=== PATIENT | male | born 1960 | race Caucasian/White ===

== ENCOUNTER 2018-07-11 06:29 | Day surgery (SDC) | payer OTHER ==
--- NOTE | 2018-07-09 07:52 | EKG ---
Test Date: 2018-07-08 Test Time: 17:03:15 Sales Project Engineer: AGUSTIN MEASUREMENT RESULTS: Intervals: Rate: 52 OK: 162 QRSD: 94 QT: 428 QTc: 398 [place]: P: 3 OK: 162 QRS: 52 T: 20 INTERPRETIVE STATEMENTS: Sinus bradycardia Otherwise normal ECG No previous ECG available for comparison Electronically Signed On 07-09-18 07:51:[address]
[2018-07-11] MEDS ORDERED: Ringers Lactate 1,000 ML IV ONE ×2 (06:48→07:45)
[2018-07-11] MEDS ORDERED: CEFAZOLIN/SWI 1gm 1 GM/10 ML SYR ONE (06:48)
[2018-07-11] MEDS ORDERED: PROPOFOL 200 MG/20 ML VIAL IV ONE (06:56)
[2018-07-11] MEDS ORDERED: GLYCOPYRROLATE 0.2 MG/ML SYR ONE ×2 (06:57→07:42)
[2018-07-11] MEDS ORDERED: MIDAZOLAM HCL 2 MG/2 ML INJ ONE (06:57)
[2018-07-11] MEDS ORDERED: FENTANYL CITR 100 MCG/2 ML ONE (06:57)
[2018-07-11] MEDS ORDERED: LIDOCAINE 2% MPF 5 ML VIAL ONE (06:58)
[2018-07-11] MEDS ORDERED: NEOSTIGMINE 1 MG/ML -5 ML SYRINGE ONE (07:01)
[2018-07-11] MEDS ORDERED: ONDANSETRON HCL 40 MG/20 ML VIAL ONE (07:01)
[2018-07-11] MEDS ORDERED: BUPIVACAINE 0.25% PF 10 ML VIAL ONE (07:11)
[2018-07-11] MEDS ORDERED: ROCURONIUM 50 MG/5 ML VIAL IV ONE (07:30)
[2018-07-11] MEDS ORDERED: EPHEDRINE SULF 50 MG/10 ML SYR ONE (07:42)
--- NOTE | 2018-07-11 08:09 | P.OP ---
Senior Analyst Developer: Gallo Owens Preoperative diagnosis: Umbilical Hernia Postoperative diagnosis: Umbilical Hernia Primary procedure: Open Umbilical Hernia Repair with Mesh Anesthesia: GETA + Local Estimated blood loss: < 5 cc Specimen: Hernia Sac, Preperitoneal fat Findings: ~1.5 cm umbilical defect Complications: None Implants: Ventralex Transferred to: Recovery Room Condition: Good
[2018-07-11] MEDS: MEPERIDINE HCL 25 MG/0.5 ML ONE ×2 (08:41→08:46)
[2018-07-11] MEDS ORDERED: HYDROCODONE/APAP 5/325 MG TAB ONE (09:32)
--- NOTE | 2018-07-11 18:07 | OP ---
Date of Procedure: 07/11/2018 Surgeon: Valentin Pérez MD, Preoperative Diagnosis: Umbilical hernia. Postoperative Diagnosis: Umbilical hernia. Procedure Performed: Open umbilical hernia repair with mesh. Anesthesia: General endotracheal plus local with 0.25% Marcaine with epinephrine. Estimated Blood Loss: Less than 5 cc. Specimens: Hernia sac and preperitoneal fat. Findings: Approximately 1.52 cm umbilical defect. Complications: None. Implants: Ventralight small prosthetic synthetic mesh manufactured by [employer]. Disposition: Transferred to recovery room in good condition. Procedure In Detail: After informed was obtained, the patient was brought to the operating room, pre pped and draped in the usual sterile fashion. After adequate anesthesia was achieved, an infraumbili shari area was anesthetized with 0.25% Marcaine, sharply incised with a 15-blade down through subcutane ous tissues to expose the subcutaneous fat. The subcutaneous fat was dissected circumferentially shraddha und a palpable 1.5 cm to 2 cm umbilical hernia defect. The tissues were then circumferentially disse cted free and the hernia sac was grasped, elevated, and entered sharply using Metzenbaum scissors. A fter exposure and opening of the hernia sac was appreciated, the preperitoneal contents were exposed. There was some preperitoneal attached fat to the hernia sac. This was circumferentially dissected, and the hernia sac was ligated. All remaining preperitoneal contents were returned to the normal an atomic position. A finger sweep was performed within the hernia defect to palpate the area and ensur e a good clean landing zone for the mesh. The [employer] Ventralex small hernia mesh system was then broug ht into the field, hydrated appropriately, and placed in the preperitoneal position in a parachute-ty pe fashion using #1 PDS sutures in a circumferential manner using interrupted technique. After the m esh was found to be in good anatomic position, and lying flat, I secured these over the top. The shin l was then grasped, elevated, and the remaining hernia defect was closed with a 0 Ethibond in a runni ng fashion and the cell was then removed with the Gottlieb scissors. At this time, the area was copiou sly irrigated multiple times. The colon was completely clear. No additional hemostatic maneuvers re quired. The subcutaneous space was then closed using an interrupted 3-0 Vicryl suture and the skin w as closed with a 4-0 Monocryl in a running fashion. Dermabond placed over top. The patient tolerate d the procedure well without evidence of complication, transferred to PACU in good condition. All co unts were correct at the end of the case. KERRIE/ROHINI Voice ID: [id number] Report ID: [id number]
== END 2018-07-11 10:45 | disposition home or self-care (01) ==
LOC: OR 06:29
PROVIDERS: ATTEND Surgery
PROC: 0WUF0JZ Supplement Abdominal Wall with Synthetic Substitute, Open Approach (ICD-10-PCS; principal; 2018-07-11 07:30)
DX: K42.9 Umbilical hernia without obstruction or gangrene (principal); I10 Essential (primary) hypertension; Z80.49 Family history of malignant neoplasm of other genital organs
CPT/HCPCS: 88302; 93005; J0690; J2175; J2250; J2405; J2710; J3010

== ENCOUNTER 2019-08-28 11:59 | Day surgery (SDC) | payer OTHER ==
[2019-08-28] MEDS ORDERED: MIDAZOLAM HCL 2 MG/2 ML INJ ONE (12:13)
[2019-08-28] MEDS ORDERED: propofoL 200 MG/20 ML VIAL IV ONE (12:13)
[2019-08-28] MEDS ORDERED: FENTANYL CITR 100 MCG/2 ML ONE (12:14)
[2019-08-28] MEDS ORDERED: LIDOCAINE 2% MPF 5 ML VIAL ONE (12:14)
[2019-08-28] MEDS ORDERED: CEFAZOLIN/SWI 1gm 1 GM/10 ML SYR ONE (12:14)
[2019-08-28] MEDS ORDERED: Ringers Lactate 1,000 ML IV ONE ×2 (12:14→15:56)
[2019-08-28] MEDS ORDERED: BUPIVACA 0.5%/EPI 0.0005%/PF 30 ML VIAL ONE (15:02)
[2019-08-28] MEDS ORDERED: KETOROLAC 30 MG/ML INJ ONE (16:03)
[2019-08-28] MEDS ORDERED: ONDANSETRON 4 MG/2 ML VIAL ONE (16:04)
--- NOTE | 2019-08-28 16:19 | P.OP ---
Preoperative diagnosis: Infected Sebacous Cysts x 2 of upper back Postoperative diagnosis: Infected Sebacous Cysts x 2 of upper back Primary procedure: Wide Excision of Infected Sebacous Cysts x 2 of upper back Anesthesia: GETA + Local Estimated blood loss: <5 Specimen: Cultures and tissue Findings: infected sebaceous cyst of RIGHT flank and LEFT back sebaceous cyst Complications: None Transferred to: Recovery Room Condition: Good
[2019-08-28 16:47] VITALS: TEMP 97.6
[2019-08-28 17:39] VITALS: BP 119/74; O2SAT 94
--- NOTE | 2019-08-29 03:42 | OP ---
Date of Procedure: 08/28/2019 Surgeon: Valentin Pérez MD, Preoperative Diagnoses: 1.Infected sebaceous cyst of right flank. 2.Sebaceous cyst of left upper back. Postoperative Diagnoses: 1.Infected sebaceous cyst of right flank. 2.Sebaceous cyst of left upper back. Procedure Performed: A wide local excision of sebaceous cysts of left upper back and right flank. Anesthesia: General endotracheal plus local with 0.5% Marcaine with epinephrine. Estimated Blood Loss: 5 mL. Specimen: Cultures and tissue sent. Findings: 1.Infected sebaceous cyst of the right flank. 2.Left back sebaceous cyst. The infected sebaceous cyst of the right flank extended down to the fas natalie overlying the muscle through fatty layer. Complications: None. Disposition: Transferred to recovery room in good condition. Procedure In Detail: After informed consent was obtained, patient was brought to the operating room, prepped and draped in the usual sterile fashion. After adequate anesthesia was achieved, an area of the right flank area was anesthetized appropriately and an elliptical incision was taken down for ap proximately 5.5 cm. This ellipse of nonviable skin was removed and dissection continued down to circ umferentially remove infected ruptured sebaceous cyst. Cultures were sent at this time and this was consistent with an infected sebaceous cyst/epidermal inclusion cyst. This was removed in its entiret y including capsule down to good bleeding tissue and extended all the way down to the muscle fascia p frank. The area was copiously irrigated multiple times. Hemostasis was achieved with electrocautery. The area was copiously irrigated one last time, packed with half-inch iodoform packing. Sterile dr essing was placed over top. I then turned attention to the left upper back sebaceous cyst. A curvil inear incision was made over this away from an area of what appeared to be previous rupture. I disse cted down circumferentially after making an incision with a 15 blade down through subcutaneous tissue s. I circumferentially dissected out the sac of the epidermal inclusion cyst, which was easily contr olled with electrocautery without evidence of complication. The sac and entirety of the epidermal in clusion cyst were sent off for pathologic examination. The area was copiously irrigated. Ultrasound completely clear and closed with interrupted vertical mattress sutures of 2-0 Vicryl a 2-0 nylon typ e. A sterile dressing was placed over top. The patient tolerated the procedure well without evidenc e of complications, transferred to the PACU in good condition. All counts were correct at the end of the case. KERRIE/ROHINI Voice ID: [id number] Report ID: [id number]
== END 2019-08-28 17:35 | disposition home or self-care (01) ==
LOC: OR 11:59
PROVIDERS: ATTEND Surgery
PROC: 0JB70ZZ Excision of Back Subcutaneous Tissue and Fascia, Open Approach (ICD-10-PCS; 2019-08-28)
PROC: 0JB70ZZ Excision of Back Subcutaneous Tissue and Fascia, Open Approach (ICD-10-PCS; principal; 2019-08-28 14:00)
DX: L72.0 Epidermal cyst (principal); I10 Essential (primary) hypertension
CPT/HCPCS: 87070; 87205 ×2; 88304; 87075; 11402; 11404; J2704; J2250; J3010; J0690; J7120 ×2; J2405